=== PATIENT | female | born 1970 | race American Indian/Alaskan Native ===

== ENCOUNTER 2021-04-21 18:56 | Emergency (ER) | payer SELFPAY ==
[2021-04-21 21:33] VITALS: BP 154/88
--- NOTE | 2021-04-21 22:28 | Emergency Department Report ---
ED General Adult HPI - General Chief complaint: Medical Clearance Stated complaint: BUMP ON LT BREAST/BLEEDING Time Seen by Provider: 04/21/21 21:43 Source: patient Mode of arrival: Ambulatory Limitations: No Limitations - History of Present Illness Initial comments: 50-year-old -[place] female patient presents with complaints of nasal congestion x1 year and right lower dental pain x1 month, worsening over the past week. She denies any fever/chills/sweats, difficulty opening her jaw, dysphagia, or facial swelling. No cough or chest pain per patient. She also denies any facial pain or swelling patient also reports that she mistakenly came to the ED for a mammogram and breast ultrasound. She states that she was seen by her PCP for a right breast lump in breast bleeding and was instructed to have imaging performed and given an order. Patient states she thought she was to have this imaging performed in the ED. - Related Data Previous Rx's Medication Instructions Recorded Last Taken Type Amoxicillin [Trimox CAP] 500 mg PO Q8H 7 Days #21 capsule 04/21/21 Unknown Rx Levocetirizine Dihydrochloride 5 mg PO QHS PRN #30 tablet 04/21/21 Unknown Rx [Xyzal] Naproxen 500 mg PO BID PRN #20 tablet 04/21/21 Unknown Rx Allergies Allergy/AdvReac Type Severity Reaction Status Date / Time Penicillins AdvReac Unknown Verified 04/21/21 21:26 ED Review of Systems ROS: Stated complaint: BUMP ON LT BREAST/BLEEDING Other details as noted in HPI Constitutional: denies: chills, diaphoresis, fever, malaise, weakness ENT: denies: throat pain Respiratory: denies: cough, shortness of breath Cardiovascular: denies: chest pain Gastrointestinal: denies: nausea, vomiting Skin: denies: rash, lesions, change in color Neurological: denies: headache ED Past Medical Hx - Past Medical History Previous Medical History?: Yes Hx Asthma: Yes - Surgical History Past Surgical History?: No - Medications Home Medications: Home Medications Medication Instructions Recorded Confirmed Last Taken Type Amoxicillin [Trimox CAP] 500 mg PO Q8H 7 Days #21 capsule 04/21/21 Unknown Rx Levocetirizine Dihydrochloride 5 mg PO QHS PRN #30 tablet 04/21/21 Unknown Rx [Xyzal] Naproxen 500 mg PO BID PRN #20 tablet 04/21/21 Unknown Rx ED Physical Exam - General Limitations: No Limitations General appearance: alert, in no apparent distress, obese - Head Head exam: Present: atraumatic, normocephalic - Eye Eye exam: Present: normal appearance, PERRL. Absent: scleral icterus - Expanded ENT Exam Expanded Teeth exam: Present: dental caries 1 - Dental Tenderness (Mild gum swelling noted, no obvious dental abscess or overlying facial swelling noted) - Neck Neck exam: Absent: lymphadenopathy - Respiratory Respiratory exam: Absent: respiratory distress - Cardiovascular Cardiovascular Exam: Present: regular rate - Neurological Exam Neurological exam: Present: alert, oriented X3 - Psychiatric Psychiatric exam: Present: normal affect, normal mood - Skin Skin exam: Present: warm, dry, intact, normal color. Absent: rash ED Course Vital Signs 04/21/21 21:32 Temperature 98.3 F Pulse Rate 66 Respiratory 18 Rate Blood Pressure 154/88 [Left] O2 Sat by Pulse 100 Oximetry ED Medical Decision Making - Medical Decision Making 50-year-old -[place] female patient presents with complaints of nasal congestion x1 year and right lower dental pain x1 month, worsening over the past week. She denies any fever/chills/sweats, difficulty opening her jaw, dyspha azalea, or facial swelling. No cough or chest pain per patient. She also denies any facial pain or swelling patient also reports that she mistakenly came to the ED for a mammogram and breast ultrasound. She states that she was seen by her PCP for a right breast lump in breast bleeding and was instructed to have imaging performed and given an order. Patient states she thought she was to have this imaging performed in the ED. Patient given Amoxil for dental infection and Xyzal for nasal congestion. Recommend continued follow-up with PCP. Patient also given dental clinic referral and informed to follow-up within 1 week. She is well-appearing stable for discharge home. Strict return precautions were discussed in detail patient verbalized understanding. Patient states she has taken penicillin in the past without any allergic reaction Critical care attestation.: If time is entered above; I have spent that time in minutes in the direct care of this critically ill patient, excluding procedure time. ED Disposition Clinical Impression: Infected dental caries, Nasal congestion Disposition: 01 HOME / SELF CARE / HOMELESS Is pt being admited?: No Condition: Stable Instructions: Dental Caries, Pediatric, Allergic Rhinitis, Adult Additional Instructions: Please follow-up with the dental clinic from the list provided within 2 to 5 days. Prescriptions: Levocetirizine Dihydrochloride [Xyzal] 5 mg PO QHS PRN #30 tablet PRN Reason: Congestion Naproxen 500 mg PO BID PRN #20 tablet PRN Reason: pain Amoxicillin [Trimox CAP] 500 mg PO Q8H 7 Days #21 capsule Referrals: [facility] [Provider Group] - 3-5 Days [facility] [Provider Group] - 3-5 Days
== END 2021-04-21 22:46 | disposition home or self-care (01) ==
LOC: ED 18:56
DX: K02.9 Dental caries, unspecified (principal); R09.89 Other specified symptoms and signs involving the circulatory and respiratory systems; J45.909 Unspecified asthma, uncomplicated; Z98.890 Other specified postprocedural states; Z88.0 Allergy status to penicillin; Z79.899 Other long term (current) drug therapy
CPT/HCPCS: 99281

== ENCOUNTER 2021-10-24 23:45 | Emergency (ER) | payer SELFPAY ==
[2021-10-24 23:56] VITALS: BP 157/102
== END 2021-10-25 07:00 | disposition left against medical advice (07) ==
LOC: ED 23:45
DX: E11.9 Type 2 diabetes mellitus without complications (principal); Z53.21 Procedure and treatment not carried out due to patient leaving prior to being seen by health care provider